=== PATIENT | female | born 1990 | race Caucasian/White ===

== ENCOUNTER 2018-06-04 10:31 | Emergency (ER) | payer SELFPAY ==
[2018-06-04 10:32] VITALS: BP 128/72; PULSE 63; RESP 18; TEMP 36.8; O2SAT 100; BMI 20.9
--- NOTE | 2018-06-04 11:15 | US_ITS ---
STUDY: FIRST TRIMESTER OBSTETRICAL ULTRASOUND REASON FOR EXAM: Female, 27 years old. BLEEDING WITH X 1 DAY HCG- LESS THAN 1 LMP: 05/02/2018 TECHNIQUE: Transvaginal PRIOR ULTRASOUND: None. FINDINGS: There is no demonstrated intrauterine gestational sac. The uterus measures 9.6x5.5x3.8 cm. There is no demonstrated uterine fibroid. The cervix is closed. The right ovary measures 3 x 2.5 x 1.7 cm. There is no right ovarian cyst. There is no visualized right adnexal mass or complex lesion. The left ovary measures 2.5 x 1.9 x 1.4 cm. There is no left ovarian cyst. There is no visualized left adnexal mass or complex lesion. There is no fluid in the cul de sac. US/Transvaginal w/Preg US IMPRESSION: There is no demonstrated intrauterine gestational sac. Ectatic cannot excluded follow-up is recommended. Electronically Signed: Katia Gilliland MD at 13:20 EDT Tel , Service support ,
--- NOTE | 2018-06-04 11:48 | ED.DCSUM_ITS ---
- ER Visit Summary Date of Service: 06/04/18 Chief Complaint: Vaginal bleeding and History of Present Illness: The patient is a 27 F is a AB 2 (P2 = 1 live 1 stillbirth) who presents at approximately 4 weeks gestation with vaginal bleeding. She states it is heavier than and regular. For her and she denies any clots or tissue. She notes a sharp suprapubic pain symptoms began this morning. She states that she is A positive. 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 Physical Examination: Afebrile vital signs are stable Gen: Well-nourished well-developed Head: Normocephalic atraumatic Eyes: Perrl EOMI ENT: TMs clear no rhinorrhea moist mucous membranes Neck: Supple no lymphadenopathy no JVD nontender CVS: Regular rate rhythm no murmurs normal S1-S2 Respiratory: No distress clear to auscultation bilaterally chest nontender Abdomen: Soft nontender nondistended normal bowel sounds no masses Back: Nontender Extremity: Nontender no edema Skin: Normal color no rash Neuro: alert orientated ?3 CN II-XII intact normal strength sensation reflexes gait cerebellar Psych: Normal affect normal mood Test Results: Quant is less than 1. Pelvic ultrasound negative Emergency Department Course and Treatment: This most likely is a spontaneous miscarriage. 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 Impression: 1. Spontaneous miscarriage This note was generated with [employer] dictation software. It may contain incorrect words, spelling, and punctuation that were not noted in review of the chart prior to signing ED Disposition - Plan for ED Patient: Disposition: Home or Assisted Living Chief Complaint: Vag Bld, Preg Instructions: Discharge Instructions for Miscarriage Referrals: Maggy Lee MD [STAFF PHYSICIAN] -
[2018-06-04 12:08] LABS: hCG Titer Quant., Serum < 1 mIU/mL (<9 non-preg)
[2018-06-04 14:08] VITALS: BP 108/74; PULSE 68; RESP 15; O2SAT 98
== END 2018-06-04 14:09 | disposition home or self-care (01) ==
PROVIDERS: Emergency Provider Emergency Medicine; Family Provider Family Medicine; PCP Family Medicine
DX: O03.9 Complete or unspecified spontaneous abortion without complication (principal)
CPT/HCPCS: 76817; 84702; 99283; A4216

== ENCOUNTER → 2018-08-09 12:00 | Outpatient (CLI) | payer OTHER, SELFPAY ==
--- NOTE | 2018-08-09 12:09 | RAD_ITS ---
STUDY: X-RAY - LEFT HAND, ATTENTION FOURTH FINGER REASON FOR EXAM: Female, 27 years old. Left fourth digit smashed by couch while moving. Distal interphalangeal joint pain and bruising and swelling. TECHNIQUE: 3 view(s) of the finger were obtained. COMPARISON: None. FINDINGS: Normal metacarpal head. Normal metacarpophalangeal joint. Normal proximal phalanx. Normal middle phalanx. Small posterior spur base of the distal phalanx. There is a vague lucent line. Otherwise normal distal phalanx. Normal proximal interphalangeal joint. Normal distal interphalangeal joint. RAD/Finger(s) Min 2 Views IMPRESSION: Posterior spur of distal fourth phalanx. Nondisplaced avulsion possible. No dislocation. Electronically Signed: Leeanna Ashton MD at 5:26 EDT , Service support ,
== END ==
PROVIDERS: Family Provider Family Medicine; PCP Family Medicine; Referring Provider Family Medicine; Visit Provider Family Medicine
DX: S69.92XA Unspecified injury of left wrist, hand and finger(s), initial encounter (principal)
CPT/HCPCS: 73140

== ENCOUNTER 2020-07-17 13:15 | Outpatient (CLI) | payer MEDICAID, SELFPAY ==
[2020-05-07 07:58] VITALS: BMI 20.9
[2020-07-17 13:34] VITALS: BP 109/68; PULSE 100
[2020-07-17 13:35] VITALS: BP 109/68; PULSE 80; TEMP 36.5; O2SAT 98
[2020-07-17 13:54] VITALS: BMI 27.8
[2020-07-17] MEDS: Lactated Ringers 500 ML IV.SOLN. 1000 ML IV (14:36)
[2020-07-17 15:09] VITALS: TEMP 36.6
[2020-07-17 15:13] VITALS: BP 115/56; PULSE 61
--- NOTE | 2020-07-17 22:02 | OB.TRI.NOTE ---
- Problem List (1) 36 weeks gestation of Status: Acute (2) Vaginal pain Status: Acute History of Present Illness Was patient seen by the physician?: No Reason For Visit: R/O LABOR Date of Service: 07/17/20 Final KESHAWN: 08/12/20 Gestational age: 36 Weeks and 2 Days History of Present Illness: Patient is a at 36.2 weeks gestation that presented to triage with vaginal pain. Denies any contractions, cramping, loss of fluid or vaginal bleeding. Positive movement. Feeling pain like a pulling sensation in lower groin/vaginal area. Allergies No Known Allergies Allergy (Verified 05/07/20 07:56) Review of Systems Constitutional: Denies: Anorexia, Chills, Fever Cardiovascular: Denies: Chest Pain Respiratory: Denies: Cough, Shortness of Breath Gastrointestinal: Denies: Abdominal Pain Genitourinary: Denies: Dysuria, Frequency, Hematuria Physical Exam Vitals: Vital Signs Temp Pulse BP Pulse Ox 97.8 F 61 115/56 L 98 07/17/20 15:09 07/17/20 15:13 07/17/20 15:13 07/17/20 13:35 General: Alert, Oriented x3 Cardiovascular: Regular rate Lungs: Normal air movement Abdomen: Soft, Non Tender, Gravid Neurological: Cranial nerves II-XII grossly intact NST - FHR Rate Baby A Baseline: 130 Variability:: Moderate Accelerations:: 15 x 15 Decelerations:: None NST Reactive:: Yes FHR Category:: Category I Uterine Activity:: Irritability Impression/Plan at 36.2 weeks gestation with vaginal and groin pain. Continuous monitoring CE unchanged Category 1 tracing, reactive NST Suspect round ligament pain- Educated on stretches and importance of slowly changing positions Discharge home with follow up in office for scheduled OB Dr. Olguin notified and agrees with plan of care- collaborating physician
== END 2020-07-17 16:30 | disposition home or self-care (01) ==
LOC: WPOUT 13:29 → WP 13:29
PROVIDERS: PCP Family Medicine; Referring Provider Advanced Practice Midwife; Visit Provider Advanced Practice Midwife
DX: O26.893 Other specified pregnancy related conditions, third trimester (principal); R10.2 Pelvic and perineal pain; R10.30 Lower abdominal pain, unspecified; Z3A.36 36 weeks gestation of pregnancy
CPT/HCPCS: 59025; 59050; 99218; J7120; G0378

== ENCOUNTER 2020-07-21 14:50 | Outpatient (CLI) | payer MEDICAID, SELFPAY ==
[2020-07-21 15:19] VITALS: BMI 28.1
--- NOTE | 2020-07-21 17:08 | US_ITS ---
STUDY: OBSTETRICAL ULTRASOUND - BIOPHYSICAL PROFILE REASON FOR EXAM: Female, 29 years old. well-being LMP: 11/06/19 PRIOR ULTRASOUND: None. TECHNIQUE: Transabdominal ultrasound evaluation was performed. FINDINGS: There is a single intrauterine fetus. The fetus is in a cephalic presentation. There is demonstrated cardiac activity with a heart rate of 161 bpm. There is a normal amniotic fluid volume. BIOPHYSICAL PROFILE: Breathing Movements (FBM): 2 Gross Body Movements (GBM): 2 Tone (FT): 2 Amniotic Fluid Volume (AFV): 2 TOTAL SCORE: 8 / 8 US/Biophysical Profile IMPRESSION: Normal biophysical profile of 06/20. Electronically Signed: Mati Jackson, at 18:48 EDT Tel , Service support ,
--- NOTE | 2020-07-21 17:14 | US_ITS ---
STUDY: SECOND AND THIRD TRIMESTER OBSTETRICAL ULTRASOUND REASON FOR EXAM: Female, 29 years old LGA- GROWTH AND MAXIMILIAN LMP: 11/06/2019 TECHNIQUE: Transabdominal TECHNICAL QUALITY: Adequate. PRIOR ULTRASOUND: None. FINDINGS: There is a single intrauterine fetus. The fetus is in a cephalic presentation. There is demonstrated cardiac activity with a heart rate of 167 bpm. There is a normal amniotic fluid volume. The largest amniotic fluid pocket measures 5.4 cm. The amniotic fluid index (MAXIMILIAN) is 9 cm. The placenta is anterior in location and is not low lying. There are Grade 1 placental changes. The cervix measures 3.9 cm in length. The bilateral adnexal regions are normal. BIOMETRY: BPD: 8.4 cm: 33 weeks, 5 days HC: 31.8 cm: 35 weeks, 6 days AC: 36.1 cm: 40 weeks, 1 days FL: 7.5 cm: 38 weeks, 2 days CI: 75% FL/BPD: 89 FL/AC: 21% HC/AC: 0.88 age by current US: 37 weeks, 0 days. KESHAWN by current US: 08/11/2020. Estimated weight: 3450 grams, +/- 504 grams, 88 %. . Age by LMP: 36 weeks, 6 days. KESHAWN by LMP: 08/12/2020. US/OB Limited With Biometrics IMPRESSION: 37 week intrauterine Electronically Signed: Ricky Cochran MD at 20:17 EDT , Service support ,
--- NOTE | 2020-07-22 01:50 | OB.TRI.NOTE ---
History of Present Illness Date of Service: 07/21/20 Was patient seen by the physician?: No Reason For Visit: R/O L;ABOR Date of Service: 07/21/20 Final KESHAWN: 08/12/20 Final KESHAWN Source: US <20 weeks Gestational age: 36 6/7 weeks History of Present Illness: 29-year-old 4 para 1-1-1-1 at 36-6/7 weeks gestation presents for some spotting and contractions. She denies any gross vaginal bleeding or leaking of fluid. She is had good movement. She is just been more uncomfortable with the contractions and they seemed of gotten a little worse when she arrived to labor and delivery. Allergies No Known Allergies Allergy (Verified 05/07/20 07:56) Physical Exam General: Alert, Cooperative, No apparent distress Abdomen: Soft, Non Tender, Non-Distended, Gravid, Appropriate for Gestational Age, - - contractions are mild to moderate NST - FHR Rate Baby A Baseline: 130 Variability:: Moderate Accelerations:: 15 x 15 Decelerations:: Variable NST Reactive:: Yes FHR Category:: Category I - after variable Uterine Activity:: irreg ctxs Impression/Plan 29 YOF @ 36 6/7 weeks w/ threatened PTL, occas mild variable. BPP reassuring. Fetus is AGA w/ normal AFV on growth scan d/c home, labor precautions, kick counts, f/u as scheduled in the office or as needed
== END 2020-07-21 17:55 | disposition home or self-care (01) ==
LOC: WPOUT 15:00 → WP 15:03 → OBT 16:10
PROVIDERS: PCP Family Medicine; Referring Provider Obstetrics & Gynecology; Visit Provider Obstetrics & Gynecology
DX: O47.03 False labor before 37 completed weeks of gestation, third trimester (principal); Z3A.37 37 weeks gestation of pregnancy
CPT/HCPCS: 59025; 59050; 76816; 76818; 99218; G0378

== ENCOUNTER 2020-07-23 10:55 | Outpatient (CLI) | payer MEDICAID, SELFPAY ==
[2020-07-23 11:11] VITALS: BMI 26.6
[2020-07-23 12:06] LABS: ROM Internal Control Test YES-OK TO RESULT pt. (Internal QC); ROM Patient Test Negative (Negative)
[2020-07-23 13:01] VITALS: BP 109/59; PULSE 68
[2020-07-23 13:02] VITALS: BP 109/59; PULSE 68; RESP 16; TEMP 36.7
[2020-07-23 14:49] VITALS: PULSE 89; O2SAT 98
[2020-07-23 14:50] VITALS: BP 117/56; PULSE 82
--- NOTE | 2020-07-23 20:49 | OB.TRI.NOTE ---
- Problem List (1) Amniotic fluid leaking Status: Acute (2) 37 weeks gestation of Status: Acute History of Present Illness Date of Service: 07/23/20 Was patient seen by the physician?: Yes Reason For Visit: R/O LABOR Date of Service: 07/23/20 Final KESHAWN: 08/12/20 Final KESHAWN Source: US <20 weeks Gestational age: 37 Weeks and 1 Days History of Present Illness: Patient presented to triage for leaking fluid. Patient denies any vaginal bleeding or gush of fluid. Just feels like underwear are damp. Positive movement. Does feel irregular contractions. Allergies No Known Allergies Allergy (Verified 05/07/20 07:56) Laboratory Studies: Laboratory Tests 07/23/20 Range/Units 11:20 Vag Amniotic Fld Detect Negative (Negative) Review of Systems Constitutional: Denies: Anorexia, Chills, Fever Eyes: Denies: Blurred vision Cardiovascular: Denies: Chest Pain Respiratory: Denies: Cough, Shortness of Breath Gastrointestinal: Denies: Abdominal Pain Genitourinary: Denies: Dysuria Neurological: Denies: Blurred vision, Headaches Physical Exam Vitals: Vital Signs Temp Pulse Resp BP Pulse Ox 98.0 F 82 16 117/56 L 98 07/23/20 13:02 07/23/20 14:50 07/23/20 13:02 07/23/20 14:50 07/23/20 14:49 General: Alert, Oriented x3 Cardiovascular: Regular rate Lungs: Normal air movement Abdomen: Soft, Non Tender, Gravid Neurological: Cranial nerves II-XII grossly intact Cervix Dilation (cm): 0.5 - RN exam Station: -3 NST - FHR Rate Baby A Baseline: 130 Variability:: Moderate Accelerations:: 15 x 15 Decelerations:: None NST Reactive:: Yes FHR Category:: Category I Uterine Activity:: Irregular contractions Impression/Plan A/P at 37.5 weeks gestation to rule out labor and rupture of membranes ROM collected - negative Category 1 tracing , NST reactive CE- unchanged Discharge home- Patient to keep scheduled office appointment
== END 2020-07-23 13:05 | disposition home or self-care (01) ==
LOC: WPOUT 11:00 → OBT 11:01
PROVIDERS: Obstetrics & Gynecology; PCP Family Medicine; Referring Provider Advanced Practice Midwife; Visit Provider Advanced Practice Midwife
DX: O47.1 False labor at or after 37 completed weeks of gestation (principal); Z3A.37 37 weeks gestation of pregnancy
CPT/HCPCS: 59025; 59050; 84112; 99218; G0378

== ENCOUNTER → 2020-07-31 09:00 | Outpatient (CLI) | payer MEDICAID, SELFPAY ==
[2020-07-23 11:11] VITALS: BMI 26.6
== END ==
PROVIDERS: PCP Family Medicine; Referring Provider Obstetrics & Gynecology; Visit Provider Obstetrics & Gynecology
DX: Z11.59 Encounter for screening for other viral diseases (principal)
CPT/HCPCS: 87635; C9803; U0003

== ENCOUNTER 2020-08-01 16:40 | Outpatient (CLI) | payer MEDICAID, SELFPAY ==
[2020-08-01 17:07] VITALS: TEMP 36.4
[2020-08-01 17:21] VITALS: BMI 28.3
[2020-08-01 17:41] VITALS: BP 113/69; PULSE 98
[2020-08-01 17:47] LABS: ROM Internal Control Test YES-OK TO RESULT pt. (Internal QC); ROM Patient Test Negative (Negative)
[2020-08-01] MEDS: cycloBENZAPRine HCl 5 MG TABLET PO (19:21)
[2020-08-01] MEDS: proMETHazine 25 MG Tablet PO (19:21)
[2020-08-01] MEDS: DiphenhydrAMINE 25 MG Capsule PO (19:21)
--- NOTE | 2020-08-17 14:05 | OB.TRI.PN ---
Progress Notes Date of Service: 08/01/20 Progress Note: Presented to triage with complaint of vaginal discharge and possible leakage of fluid. Irregular contractions O: Rom plus negative FHR 145 moderate variability, accels. Reactive NST. Irregular contractions A: Vaginal discharge P: 1) No ROM. Ok to D/C home with labor instructions. Laboratory Studies: Laboratory Tests 08/01/20 Range/Units 16:55 Vag Amniotic Fld Detect Negative (Negative)
== END 2020-08-01 19:30 | disposition home or self-care (01) ==
LOC: WPOUT 16:48 → OBT 16:49
PROVIDERS: PCP Family Medicine; Visit Provider Advanced Practice Midwife
DX: O62.9 Abnormality of forces of labor, unspecified (principal); Z3A.00 Weeks of gestation of pregnancy not specified
CPT/HCPCS: 59025; 59050; 84112; 99218; G0378

== ENCOUNTER 2020-08-03 08:15 | Inpatient (IN) | payer MEDICAID, SELFPAY ==
[2020-08-03] VITALS (37 sets, daily range): BP systolic 89–125; BP diastolic 46–82; PULSE 63–105; RESP 16–18; TEMP 36.4–36.9; O2SAT 97–99; BMI 28.5
[2020-08-03] MEDS: hydrOXYzine PAM 25 MG Capsule 50 MG PO (04:17)
[2020-08-03] MEDS: Morphine 4 MG/ML Syringe IM (04:33)
[2020-08-03] MEDS: Lactated Ringers 1,000 ML 200 ML IV (08:40)
[2020-08-03] MEDS: Lactated Ringers 500 ML 999 ML IV ×2 (08:50→09:59)
[2020-08-03 08:55] LABS: Absolute Lymphocyte Count 2.61 X10^3/uL (0.83-4.51); Absolute Neutrophil Count 10.4 X10^3/uL (2.0-7.7); Basophil# 0.04 X10^3/uL; Basophil% 0.3 % (0-1); Eosinophil# 0.09 X10^3/uL; Eosinophils% 0.6 % (0-5); Hematocrit 36.4 % (37-47); Hemoglobin 12.3 g/dL (12.0-15.0); Lymphocyte # 2.61 X10^3/ul (4.0); Lymphocyte % 17.9 % (19-41); Mean Corp Hgb Conc 33.8 g/dL (32-36); Mean Corpuscular Hgb 30.8 pg (27.0-32.0); Mean Corpuscular Volume 91.2 fL (81-99); Monocyte# 1.31 X10^3/uL; NRBC Flagged by Analyzer 0 % (0-5); Neutrophil # 10.36 X10^3/uL (2.7-7.7); Neutrophil % 71.2 % (47-70); Platelet Count 183 K/mm3 (150-450); RBC Distribution Width CV 13.5 % (11.6-14.6); RBC Distribution Width SD 45.1 fl (35.1-43.9); Red Blood Count 3.99 M/mm3 (4.2-5.4); White Blood Count 14.6 K/mm3 (4.4-11.0)
--- NOTE | 2020-08-03 09:43 | HP.PCM_ITS ---
History Date of Admission: 06/17/17 Final KESHAWN: 08/12/20 Final KESHAWN Source: US <20 weeks Gestational age: 38 Weeks and 5 Days History of this : This is a 29 year-old, @ 38+ weeks, in labor. h/o previous vaginal delivery and c/s for with multiple anomalies. Allergies No Known Allergies Allergy (Verified 08/03/20 01:29) Home Medications: Home Medications Vits [Prenatabs FA ] 1 tab PO DAILY 11/13/14 Ferrous Sulfate [Iron] 325 mg PO DAILY 07/17/20 Smoking Status: Former smoker Alcohol: None Number of Fetus(es): 1 NST - FHR Rate Baby A Baseline: 135 Variability:: Moderate Accelerations:: 15 x 15 Decelerations:: None NST Reactive:: Yes FHR Category:: Category I Uterine Activity:: 2-4 min History Past Pregnancies: Past Pregnancies Delivery Date Name GA/ Weeks Outcome Route Wt Sex Labor Length Anesthesia Delivery Location Provider FOB Review of Systems Constitutional: Denies: Anorexia Eyes: Denies: Blurred vision HEENT: Denies: Difficulty Hearing, Head Aches Physical Exam Vitals: Vital Signs Temp Pulse BP Pulse Ox 97.6 F L 93 121/69 H 99 08/03/20 06:23 08/03/20 09:41 08/03/20 07:26 08/03/20 09:41 General: Alert, Oriented x3 Abdomen: Soft, Non Tender, Gravid Neurological: Cranial nerves II-XII grossly intact 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 1) admit to L&D 2) monitor fhr/toco 3) AROM- clear 4) will augment with pitocin if needed 5) epidural for pain 6) anticipate 7) Dr. Elke Bland will be backup while patient in labor
[2020-08-03] MEDS: fentaNYL-bupivacaine (epidural) 100 ML BAG EPIDURAL (09:50)
[2020-08-03] MEDS: Oxytocin 30 units/NS 500 ml 30 UNITS/500 ML IV.SOLN 334 UNITS IV (12:35)
--- NOTE | 2020-08-03 12:39 | PCM.OPRPT ---
Vaginal Delivery Maternal Presentation: Active Labor Amniotic Membrane Rupture Type: Artificial Amniotic Fluid Description: Clear Final KESHAWN: 08/12/20 Gestational age: 38 Weeks and 5 Days Date of Procedure: 08/03/20 Pre-Operative Diagnosis: term gestation, in labor Post-Operative Diagnosis: same, live female infant Surgery/ Procedure Performed: Spontaneous Vaginal Delivery Type of Anesthesia: Epidural Description of Procedure: of live female born without complications. Good maternal pushing efforts delivered head, loose nuchal x 2 reduced. Gentle downward traction placed and with good maternal pushing efforts shoulders delivered followed by body. placed on mother for immediate skin to skin. Vigourous at delivery. delayed cord clamping. Placenta delivered without complication and intact. Vagina/perineum intact. Presentation: Vertex Placental Delivery Description: Spontaneous Placenta Disposition: [facility] Cord Vessel Description: 3 Vessels Nuchal Cord Compression: With compression Cord Entanglement: Around neck x 2, loose Drain: Sebastian to straight drain Estimated Blood Loss: 150 Infant A gender: Female (1 minute): 8 (5 minute): 9 Episiotomy Description: None Laceration: None Medications given after delivery: IV Pitocin Complications: None - successful
[2020-08-03] MEDS: Ibuprofen 600 MG Tablet PO ×2 (13:19→20:27)
[2020-08-03] MEDS: Acetaminophen 500 MG Tablet 1000 MG PO (18:05)
[2020-08-04] VITALS (7 sets, daily range): BP systolic 86–114; BP diastolic 44–62; PULSE 57–71; RESP 16; TEMP 36.8–37.1; O2SAT 98
[2020-08-04] MEDS: Ibuprofen 600 MG Tablet PO (03:48)
--- NOTE | 2020-08-04 08:44 | PCM.PN.OB ---
Subjective: No complaints - Physical Exam Vitals/I&O's: Vital Signs Temp Pulse Resp BP Pulse Ox 98.2 F 71 16 114/56 L 97 08/04/20 08:11 08/04/20 08:11 08/04/20 08:11 08/04/20 08:11 08/03/20 20:03 Oxygen Delivery Method Room Air Weight: 166 lb 2 oz Body Mass Index (BMI) 28.5 Intake and Output for Last 24 Hours 08/02/20 08/03/20 08/04/20 23:59 23:59 23:59 Intake Total 2276.67 / 2276.67 Output Total 950 / 950 Balance 1326.67 / 1326.67 General: Alert, Oriented x3 Abdomen: Soft, Non Tender, Non-Distended - ff mid & below umb Extremities: No Calf Tenderness Laboratory Results 08/03/20 08:40: WBC 14.6 H, RBC 3.99 L, Hgb 12.3, Hct 36.4 L, MCV 91.2, MCH 30.8, MCHC 33.8, RDW Std Deviation 45.1 H, RDW Coeff of Gage 13.5, Plt Count 183, MPV 12.0, Immature Gran % (Auto) 1.000 H, Neut % (Auto) 71.2 H, Lymph % (Auto) 17.9 L, Young % (Auto) 9.0, Eos % (Auto) 0.6, Baso % (Auto) 0.3, Absolute Neuts (auto) 10.4 H, Absolute Lymphs (auto) 2.61, Nucleated RBC % 0 08/03/20 08:40: Blood Type A POSITIVE, Antibody Screen NEGATIVE Current Medications Acetaminophen (Tylenol) 1,000 mg PO Q8H PRN PRN PRN Reason: Pain Score 1-3/10 Last Admin: 08/03/20 18:05 Dose: 1,000 mg Documented by: Bisacodyl (Dulcolax) 10 mg RECTAL UD PRN PRN Reason: If no BM Dibucaine (Dibucaine) 1 applic TOPICAL TID PRN PRN; Protocol PRN Reason: Discomfort Ferrous Sulfate (Ferrous Sulfate) 325 mg PO 1200 [place] Hydrocortisone (Hytone) 1 applic TOPICAL TID PRN PRN; Protocol PRN Reason: Discomfort Ibuprofen (Motrin) 600 mg PO Q6H PRN PRN PRN Reason: Pain Score 1-3/10 Last Admin: 08/04/20 03:48 Dose: 600 mg Documented by: Methylergonovine Maleate (Methergine) 0.2 mg IM X1 PRN PRN Reason: Excess bleeding/uterine atony Ondansetron HCl (Zofran) 4 mg IV Q4H PRN PRN PRN Reason: Nausea Oxycodone HCl (Oxyir) 5 - 10 mg PO Q4H PRN PRN PRN Reason: Pain Score 4-10/10 Senna/Docusate Sodium (Senokot-S, Anu-Colace) 1 - 2 tablet PO DAILY PRN PRN PRN Reason: Constipation Simethicone (Mylicon) 80 mg PO PCHS PRN PRN Reason: Indigestion/Stomach pain Sodium Chloride () 5 - 15 ml IV UD PRN PRN Reason: SALINE FLUSH Medical Necessity - Tobacco Use Smoking Status: Former smoker Assessment/Plan All Active Problems (Last Reviewed 05/07/20 @ 07:58 by Jocy Pierce) 36 weeks gestation of (Acute) Vaginal pain (Acute) Amniotic fluid leaking (Acute) 37 weeks gestation of (Acute) Urinary tract infection with hematuria (Acute) PPD#1 D/c home per patient request
--- NOTE | 2020-08-04 08:45 | DCINST_ITS ---
Discharge Diet: No Restrictions Discharge Activity: May Not Drive, May Shower May resume sexual activity in: 6 weeks Weight Bearing Status: Weight bearing as tolerated Additional Instructions: If you experience any of the following, contact your healthcare provider. * Bleeding that soaks a pad every hour for 2 hours * Fever 100.4 or higher * Unrelieved incision or abdominal pain * Swelling, redness, discharge or bleeding from your incision or episiotomy site * Your incision begins to separate * Problems urinating (including inability to urinate or burning while urinating). * Visual changes * Severe headache * Flu-like symptoms * Pain or redness in one of both of your breasts * Pain, warmth, tenderness or swelling in your legs, especially the calf area * Frequent nausea and vomiting * Symptoms of depression or anxiety If you experience any of the following, call 911 or go to the nearest Emergency Room. * Chest pain * Problems breathing * Seizure activity * Partial or complete paralysis of a body part, slurred speech, weakness or drooping of the face, or a sudden inability to walk or hold your balance Allergies/Adverse Reactions: Allergies No Known Allergies Allergy (Verified 08/03/20 01:29) Medications to take at Discharge Vits [Prenatabs FA ] 1 tab PO DAILY 11/13/14 Ferrous Sulfate [Iron] 325 mg PO DAILY 07/17/20 Acetaminophen [Tylenol] 1,000 mg PO Q8H PRN PRN tablet 08/04/20 Ibuprofen [Motrin] 600 mg PO Q6H PRN PRN tablet 08/04/20 Primary Care Physician: Syed Herrera MD [Primary Care Provider] - Test Results: Test results from this visit will be discussed in further detail at your follow- up appointment, if applicable.
--- NOTE | 2020-08-04 08:45 | PCM.DCVAG ---
Discharge Diet: No Restrictions Discharge Activity: May Not Drive, May Shower May resume sexual activity in: 6 weeks Weight Bearing Status: Weight bearing as tolerated Additional Instructions: If you experience any of the following, contact your healthcare provider. Bleeding that soaks a pad every hour for 2 hours Fever 100.4 or higher Unrelieved incision or abdominal pain Swelling, redness, discharge or bleeding from your incision or episiotomy site Your incision begins to separate Problems urinating (including inability to urinate or burning while urinating). Visual changes Severe headache Flu-like symptoms Pain or redness in one of both of your breasts Pain, warmth, tenderness or swelling in your legs, especially the calf area Frequent nausea and vomiting Symptoms of depression or anxiety If you experience any of the following, call 911 or go to the nearest Emergency Room. Chest pain Problems breathing Seizure activity Partial or complete paralysis of a body part, slurred speech, weakness or drooping of the face, or a sudden inability to walk or hold your balance Allergies/Adverse Reactions: Allergies No Known Allergies Allergy (Verified 08/03/20 01:29) Medications to take at Discharge Vits [Prenatabs FA ] 1 tab PO DAILY 11/13/14 Ferrous Sulfate [Iron] 325 mg PO DAILY 07/17/20 Acetaminophen [Tylenol] 1,000 mg PO Q8H PRN PRN tablet 08/04/20 Ibuprofen [Motrin] 600 mg PO Q6H PRN PRN tablet 08/04/20 Primary Care Physician: Syed Herrera MD [Primary Care Provider] - Test Results: Test results from this visit will be discussed in further detail at your follow-up appointment, if applicable.
[2020-08-04] MEDS: Ferrous Sulfate 325 MG Tablet PO (14:36)
[2020-08-04] MEDS: Acetaminophen 500 MG Tablet 1000 MG PO (14:55)
--- NOTE | 2020-08-04 15:21 | CASEMGMT ---
Social Work Brief Assessment Labor and Delivery Unit Patient Address: [address], [place] [address] Phone number: [phone] Date of Referral/Notification: 08/04/2020 Time of Referral: [id number] Referred By: Dr. Erickson Date of Intervention: 08/04/2020 Time of Intervention: 152 Reason for Referral: Maternal history of loss Informant: Medical record and mother of baby (GENO) Miesha Prakash History: GENO is a 29-year-old female who delivered a baby girl Millicent Nair on 08/03/2020. GENO is 4 para 2, now 3 after delivering Millicent. Father of baby (FOB) is reported to be Jonathan Nair who is age 23. This is the first baby for Jonathan. GENO started care during this at 7 weeks gestation. GENO has 1 living child, Ankit Prakash who is 8 years old. It is reported that GENO has 2 previous losses including 1 full-term infant girl who after 2 hours of life due to congenital anomalies. MOB with another which was electively terminated, also due to the same congenital anomalies. Both were infant girls and were named Brie and Funmi. MOB reports she has been with the father of baby for the last 3 years. Denies any domestic violence or safety concerns in relationship. FOB works in construction and MOB stays at home. MOB reports her mother is a strong support person if MOB should need any type of emotional support. MOB denies any history of mental health issues or depression. Does admit to grief after the loss of 2 infants, and reports did go to counseling for short time to help ensure that GENO was communicating appropriately with her young son. Assessment: Met with MOB in room, also in room was nurse who was finishing up discharge for MOB, and also the FOB was sitting on the couch on his phone. MOB was initially placing baby in the car seat, and when finished set baby down to speak with this automobile and property underwriter. Introduced to self and role, and reason for visit. MOB reports to have needed baby supplies and reports looking forward to returning home. MOB reports to feel a connection with this baby and to be happy about having her daughter. MOB denies any history of prior depression or any concerns with emotional health issues currently. MOB did accept a packet on mood and anxiety disorders for home-going. Touched on risk factors present and explored whether GENO has any support in case symptoms arise. GENO reports to be feeling good emotionally, and identifies her mother as a strong emotional support person. MOB denies any type of concerns with home-going, and accepted information that social work offered. No voiced concerns by nursing staff regarding parent-child interactions or bonding. Interaction with family was brief this date. Note that MONICA appeared disinterested and irritable during social work visit. MONICA clearly had an irritated facial expression, to which this automobile and property underwriter inquired if MONICA was doing okay. MONICA admitted to being irritated, and just ready to go home. MONICA polite overall, just limited eye contact and engagement in the conversation, remaining on his phone for most of the time. MONICA did go out to pull the car around at the encouragement MOB, and made a comment to the point of it all gets better from here, right? MOB polite, good eye contact, bright affect. MOB reports that MONICA is just very tired with little sleep, and that MONICA is a home body. MOB denies any other concerns or issues going on at this point. MOB made comment that MONICA will have to adjust to the fact that discharge is a little later when FOB wanted it to be. MONICA does report will be off of work tomorrow. GENO did make comment that she thinks her sister may be having some depression, and plans to share information this automobile and property underwriter provided with MOB sister. GENO denies any needs for home-going. Plan: MOB and infant to discharge home today. Information on mood and anxiety disorders provided, as well as online and local supports in case the need arises. No further needs requested or indicated. -ZHAO Recio, FLORENCIO *Information documented in this assessment generated with [email or web address] System*
== END 2020-08-04 15:25 | disposition home or self-care (01) | DRG 560 ==
LOC: OBT 08:25 → WP 08:25
PROVIDERS: Admitting Provider Obstetrics & Gynecology; PCP Family Medicine; Referring Provider Advanced Practice Midwife; Visit Provider Obstetrics & Gynecology
DX: O34.219 Maternal care for unspecified type scar from previous cesarean delivery (principal); N85.8 Other specified noninflammatory disorders of uterus; Z3A.38 38 weeks gestation of pregnancy; Z37.0 Single live birth; Z87.891 Personal history of nicotine dependence; O69.1XX0 Labor and delivery complicated by cord around neck, with compression, not applicable or unspecified; O62.9 Abnormality of forces of labor, unspecified; Z3A.00 Weeks of gestation of pregnancy not specified; Z11.59 Encounter for screening for other viral diseases
CPT/HCPCS: 59025; 59050; 84112; 85025; 86850; 86900; 86901; 87635; 99218; C9803; J7120; 90686; G0378; U0003

== ENCOUNTER → 2021-08-02 08:18 | Outpatient (CLI) | payer MEDICAID, SELFPAY | PROVIDERS: Visit Provider Physician Assistant Surgical | DX: R05 Cough (principal) | CPT/HCPCS: 87635; U0005; U0003 ==

== ENCOUNTER 2022-06-25 00:30 | Outpatient (CLI) | payer MEDICAID, SELFPAY ==
[2022-06-25 00:53] VITALS: TEMP 36.6
[2022-06-25 00:59] VITALS: BMI 28.2
[2022-06-25 01:01] VITALS: BP 125/60; PULSE 94
[2022-06-25 01:02] VITALS: PULSE 86; O2SAT 99
--- NOTE | 2022-06-25 11:35 | OB.TRI.NOTE ---
HPI - General General Date of Admission: 06/25/22 Date of Service: 06/25/22 Chief Complaint: contractions HPI Narrative GENO TURNER, is a 31 F who presents with irregular ctx's q 2-8 min. No lof or vb. Good FM. PFSH PFSH Home Medications vits,calcium no.78-iron fumarate-folic acid 29 mg-1 mg tablet 1 tab PO DAILY 11/13/14 [History Last Taken 06/25/22] ferrous sulfate 325 mg (65 mg iron) tablet 325 mg PO DAILY anemia 07/17/20 [History Last Taken 06/24/22] Allergy/AdvReac Type Severity Reaction Status Date / Time No Known Allergies Allergy Verified 08/03/20 01:29 Social History (Updated 05/07/20 @ 08:18 by Mati ONEAL, PA) Smoking Status: Former smoker alcohol intake: never History Elective abortions Hx Para 2 Spontaneous abortions Hx # Term Pregnancies Ectopic pregnancies Hx # Pregnancies Multiple births # of living children NST FHR Rate Baby A Baseline: 130 Variability:: Moderate Accelerations:: 15 x 15 Decelerations:: None NST Reactive:: Yes FHR Category:: Category I Uterine Activity:: irregular ctx's Assessment & Plan (1) 38 weeks gestation of : PLAN: Cvx 1 cm and remained 1 cm. Uterine ctx's irregular for pt at this time and she is comfortable going home. Counseled regarding likely early labor and reasons to call or return to L&D for eval. (2) History of section: (3) Uterine contractions:
== END 2022-06-25 02:30 | disposition home or self-care (01) ==
LOC: WPOUT 00:33 → WP 00:34
PROVIDERS: Visit Provider Obstetrics & Gynecology
DX: O47.1 False labor at or after 37 completed weeks of gestation (principal); Z87.891 Personal history of nicotine dependence; Z3A.38 38 weeks gestation of pregnancy
CPT/HCPCS: 59025; 59050; 99218; G0378

== ENCOUNTER 2022-06-28 19:17 | Outpatient (CLI) | payer MEDICAID, SELFPAY ==
[2022-06-28 19:27] VITALS: BMI 28.3
[2022-06-28 19:40] VITALS: BP 110/60; PULSE 87
[2022-06-28 19:41] VITALS: TEMP 36.7; O2SAT 98
[2022-06-28 20:33] VITALS: BP 114/55; PULSE 75; TEMP 36.4; O2SAT 97
[2022-06-28] MEDS: oxyCODONE 5 MG Tablet PO (20:55)
--- NOTE | 2022-07-15 19:23 | OB.TRI.NOTE ---
HPI - General General Date of Service: 07/30/22 HPI Narrative GENO TURNER, is a 31 F who presents with contractions. PFSH PFSH Home Medications vits,calcium no.78-iron fumarate-folic acid 29 mg-1 mg tablet 1 tab PO DAILY 11/13/14 [History Last Taken 07/07/22] ferrous sulfate 325 mg (65 mg iron) tablet 325 mg PO DAILY anemia 07/17/20 [History Last Taken 07/07/22] Allergy/AdvReac Type Severity Reaction Status Date / Time No Known Allergies Allergy Verified 06/28/22 19:56 Surgical History (Updated 07/08/22 @ 04:36 by Zoey Peterson) History of surgery Previous section Social History (Updated 05/07/20 @ 08:18 by Mati ONEAL, PA) Smoking Status: Former smoker alcohol intake: never History Elective abortions Hx Para 3 Spontaneous abortions Hx # Term Pregnancies Ectopic pregnancies Hx # Pregnancies Multiple births # of living children Assessment & Plan (1) 38 weeks gestation of : COMMENT: 37&3 PLAN: Reactive NST for false labor
== END 2022-06-28 21:00 | disposition home or self-care (01) ==
LOC: WPOUT 19:25 → WP 19:27
PROVIDERS: Visit Provider Obstetrics & Gynecology
DX: O47.1 False labor at or after 37 completed weeks of gestation (principal); Z3A.38 38 weeks gestation of pregnancy; Z87.891 Personal history of nicotine dependence
CPT/HCPCS: 59025; 59050; 99218; G0378

== ENCOUNTER 2022-07-08 05:35 | Inpatient (IN) | payer MEDICAID, SELFPAY ==
[2022-07-08] VITALS (42 sets, daily range): BP systolic 84–127; BP diastolic 45–69; PULSE 54–95; RESP 16–18; TEMP 36.2–36.6; O2SAT 96–100
[2022-07-08 01:12] LABS: ROM Internal Control Test YES-OK TO RESULT pt. (Internal QC); ROM Patient Test Negative (Negative)
[2022-07-08] MEDS: LACTATED RINGERS 500 ML 999 ML IV ×2 (05:45→10:17)
[2022-07-08 06:15] LABS: Absolute Lymphocyte Count 3.44 X10^3/uL (0.83-4.51); Absolute Neutrophil Count 10.4 X10^3/uL (2.0-7.7); Basophil# 0.07 X10^3/uL; Basophil% 0.4 % (0-1); Eosinophil# 0.17 X10^3/uL; Eosinophils% 1.1 % (0-5); Hematocrit 32.5 % (37-47); Hemoglobin 10.8 g/dL (12.0-15.0); Lymphocyte # 3.44 X10^3/ul (0.83-4.51); Lymphocyte % 21.5 % (19-41); Mean Corp Hgb Conc 33.2 g/dL (32-36); Mean Corpuscular Hgb 31.3 pg (27.0-32.0); Mean Corpuscular Volume 94.2 fL (81-99); Mean Platelet Vol. 12.1 fl (6.2-12.0); Monocyte# 1.64 X10^3/uL; Monocyte% 10.2 % (0-10); NRBC Flagged by Analyzer 0 % (0-5); Neutrophil # 10.35 X10^3/uL (2.7-7.7); Neutrophil % 64.7 % (47-70); POSITIVE DIFFERENTIAL YES; Platelet Count 225 K/mm3 (150-450); RBC Distribution Width CV 13.8 % (11.6-14.6); RBC Distribution Width SD 46.8 fl (35.1-43.9); Red Blood Count 3.45 M/mm3 (4.2-5.4)
[2022-07-08 06:33] LABS: Differential Comment SCANNED; Differential Indicated SCAN CRITERIA MET
[2022-07-08] MEDS: Lactated Ringers 1,000 ML 50 ML IV (06:46)
[2022-07-08] MEDS: fentaNYL-bupivacaine (epidural) 100 ML BAG EPIDURAL (08:24)
[2022-07-08] MEDS: Oxytocin 30 units/NS 500 ml 30 UNITS/500 ML IV.SOLN IV (09:34)
[2022-07-08] MEDS: Lactated Ringers 1,000 ML 200 ML IV (11:22)
--- NOTE | 2022-07-08 11:51 | PCM.HP.OB ---
[facility] - General General Date of Admission: 07/08/22 Date of Service: 07/08/22 Chief Complaint: labor HPI Narrative GENO TURNER, is a 31-year-old female 5 para 2-1-1-2 who presents at 39-6/7 weeks complaining contractions. She denied any gross vaginal bleeding or leaking of fluid. She was evaluated in triage and deemed to be in labor and admitted. Patient's obstetrical history is significant 1 previous that was performed for known anomalies. She had a vaginal delivery before that, and induced 22-week for anomalies not consistent with life. She then had another vaginal delivery in this current . Patient has a history of anemia during , she had an elevated 1 hour but a normal 3-hour glucose during the . She had a history of chlamydia in the past but not during this . She has a family history of polycystic kidney disease and 2 previous pregnancies affected by this. This has been tested and there is no evidence of this. Maternal Data Information Final KESHAWN: 07/12/22 Gestational age: 39 4/7 [facility] Home Medications vits,calcium no.78-iron fumarate-folic acid 29 mg-1 mg tablet 1 tab PO DAILY 11/13/14 [History Last Taken 07/07/22] ferrous sulfate 325 mg (65 mg iron) tablet 325 mg PO DAILY anemia 07/17/20 [History Last Taken 07/07/22] Allergy/AdvReac Type Severity Reaction Status Date / Time No Known Allergies Allergy Verified 06/28/22 19:56 Surgical History (Updated 07/08/22 @ 04:36 by Zoey Peterson) History of surgery Previous section Social History (Updated 05/07/20 @ 08:18 by KIMMY Chan) Smoking Status: Former smoker alcohol intake: never History Elective abortions Hx Para 3 Spontaneous abortions Hx # Term Pregnancies Ectopic pregnancies Hx # Pregnancies Multiple births # of living children ROS Constitutional Constitutional: Denies fatigue, fever(s) or malaise Eyes Eyes: Denies change in vision ENT HEENT: Denies dizziness or headache(s) Cardiovascular Cardiovascular: Denies chest pain, dyspnea or lightheadedness Respiratory/Chest Respiratory/Chest: Denies cough or dyspnea Gastrointestinal Gastrointestinal: Denies change in bowel habits Genitourinary Genitourinary: Denies burning urination or genital lesions Integumentary Integumentary: Denies rash Neurologic Neurologic: Denies confusion, dizziness, headache(s), numbness or weakness Vital Signs Vital Signs Vital Signs: 07/08/22 04:22 07/08/22 04:22 07/08/22 04:23 Temperature Temperature Source Pulse Rate 60 Blood Pressure 101/56 L BP Systolic 101 BP Diastolic 56 Pulse Ox 98 07/08/22 04:23 07/08/22 07:24 07/08/22 07:24 Temperature Temperature Source Pulse Rate 76 62 Blood Pressure 108/53 L BP Systolic 108 BP Diastolic 53 Pulse Ox 07/08/22 07:24 07/08/22 07:28 07/08/22 07:28 Temperature Temperature Source Temporal Pulse Rate 69 Blood Pressure BP Systolic BP Diastolic Pulse Ox 97 07/08/22 07:24 07/08/22 08:02 07/08/22 08:02 Temperature 97.2 F L Temperature Source Pulse Rate 61 Blood Pressure 105/56 L BP Systolic 105 BP Diastolic 56 Pulse Ox 07/08/22 08:02 07/08/22 08:07 07/08/22 08:07 Temperature Temperature Source Pulse Rate 72 Blood Pressure 110/67 BP Systolic 110 BP Diastolic 67 Pulse Ox 98 07/08/22 08:07 07/08/22 08:07 07/08/22 08:12 Temperature Temperature Source Pulse Rate 70 Blood Pressure 116/69 BP Systolic 116 BP Diastolic 69 Pulse Ox 98 07/08/22 08:12 07/08/22 08:12 07/08/22 08:17 Temperature Temperature Source Pulse Rate 91 Blood Pressure 113/59 L BP Systolic 113 BP Diastolic 59 Pulse Ox 97 07/08/22 08:17 07/08/22 08:17 07/08/22 08:22 Temperature Temperature Source Pulse Rate 76 76 Blood Pressure BP Systolic BP Diastolic Pulse Ox 98 07/08/22 08:22 07/08/22 08:27 07/08/22 08:27 Temperature Temperature Source Pulse Rate 59 L Blood Pressure 108/57 L BP Systolic 108 BP Diastolic 57 Pulse Ox 99 07/08/22 08:27 07/08/22 08:27 07/08/22 08:32 Temperature Temperature Source Pulse Rate 70 87 Blood Pressure BP Systolic BP Diastolic Pulse Ox 99 07/08/22 08:32 07/08/22 08:37 07/08/22 08:37 Temperature Temperature Source Pulse Rate 73 Blood Pressure BP Systolic BP Diastolic Pulse Ox 99 99 07/08/22 09:05 07/08/22 09:05 07/08/22 09:11 Temperature Temperature Source Temporal Pulse Rate 74 Blood Pressure 90/53 L BP Systolic 90 BP Diastolic 53 Pulse Ox 07/08/22 09:11 07/08/22 09:40 07/08/22 09:40 Temperature 97.8 F Temperature Source Pulse Rate 83 Blood Pressure 117/62 BP Systolic 117 BP Diastolic 62 Pulse Ox 07/08/22 09:39 07/08/22 09:45 07/08/22 09:45 Temperature Temperature Source Pulse Rate 65 Blood Pressure 112/60 BP Systolic 112 BP Diastolic 60 Pulse Ox 99 07/08/22 09:44 07/08/22 09:49 07/08/22 09:49 Temperature Temperature Source Pulse Rate 76 Blood Pressure 124/56 H BP Systolic 124 BP Diastolic 56 Pulse Ox 100 07/08/22 09:49 07/08/22 09:55 07/08/22 09:55 Temperature Temperature Source Pulse Rate 79 Blood Pressure 101/55 L BP Systolic 101 BP Diastolic 55 Pulse Ox 98 07/08/22 09:55 07/08/22 09:55 07/08/22 09:59 Temperature Temperature Source Pulse Rate 70 Blood Pressure 98/54 L BP Systolic 98 BP Diastolic 54 Pulse Ox 96 07/08/22 09:59 07/08/22 10:00 07/08/22 10:00 Temperature Temperature Source Pulse Rate 82 76 Blood Pressure BP Systolic BP Diastolic Pulse Ox 97 07/08/22 10:05 07/08/22 10:05 07/08/22 10:05 Temperature Temperature Source Pulse Rate 73 Blood Pressure 107/53 L BP Systolic 107 BP Diastolic 53 Pulse Ox 98 07/08/22 10:10 07/08/22 10:10 07/08/22 10:10 Temperature Temperature Source Pulse Rate 80 95 Blood Pressure 96/53 L BP Systolic 96 BP Diastolic 53 Pulse Ox 07/08/22 10:10 07/08/22 10:15 07/08/22 10:15 Temperature Temperature Source Pulse Rate 64 Blood Pressure 88/49 L BP Systolic 88 BP Diastolic 49 Pulse Ox 97 07/08/22 10:35 07/08/22 10:35 07/08/22 11:01 Temperature Temperature Source Pulse Rate 66 Blood Pressure 98/45 L 93/49 L BP Systolic 98 93 BP Diastolic 45 49 Pulse Ox 07/08/22 11:01 07/08/22 11:01 07/08/22 11:01 Temperature Temperature Source Pulse Rate 60 59 L Blood Pressure 86/45 L BP Systolic 86 BP Diastolic 45 Pulse Ox 07/08/22 11:47 07/08/22 11:47 Temperature Temperature Source Pulse Rate 60 Blood Pressure 88/49 L BP Systolic 88 BP Diastolic 49 Pulse Ox Weight Weight: 2.381 kg Body Mass Index (BMI) 0.8 Physical Exam Const alert and no apparent distress General Appearance: cooperative HEENT normocephalic Resp normal respiratory effort Cardio regular rate GI soft to palpation GI Narrative: gravid, nontender, appropriate for gestational age Extremity no calf tenderness General Extremity: edema Skin no wounds Rashes: No rashes noted Psych activity/motor behavior normal Labs Labs Labs: Blood Type A POSITIVE Antibody Screen NEGATIVE Hct 32.5 % (37-47) L Hgb 10.8 g/dL (12.0-15.0) L Obstetrics US Rhogam given: No Assessment & Plan (1) 39 weeks gestation of : PLAN: 31-year-old female with history of previous section and spontaneous labor. Risk benefits alternatives to repeat section versus trial labor reviewed. Patient desires trial of labor. Estimated weight is less than 4000 g clinically and pelvis clinically adequate to expect vaginal delivery. May have epidural as needed. (2) Spontaneous onset of labor:
[2022-07-08] MEDS: Oxytocin 30 units/NS 500 ml 30 UNITS/500 ML IV.SOLN 334 UNITS IV (12:05)
--- NOTE | 2022-07-08 12:13 | EX.PCM.OBRPT ---
Assessment & Plan (1) Spontaneous onset of labor: (2) 39 weeks gestation of : (3) History of section: Maternal Data Information Final KESHAWN: 07/12/22 Gestational age: 39 4/7 Vaginal Delivery Maternal Presentation Maternal Presentation: Active Labor Operative Information Date of Procedure: 07/08/22 Pre-Operative Diagnosis: labor, previous c/s Post-Operative Diagnosis: same Surgery / Procedure Performed: Type of Anesthesia: Epidural Special Medications: none Drain: Sebastian to straight drain Estimated Blood Loss: 200 Time of Delivery: 12:02 Findings Description of Procedure: A vigorous female infant was delivered VALENTIN over an intact perineum. The remainder the was delivered with maternal pushing and gentle traction only in less than 15 seconds. The Pitocin infusion was initiated for active management of the third stage. The cord was clamped and cut after 1 minute. The was attended to by the waiting nursing staff. The placenta was delivered spontaneously and intact. The cervix and vagina were intact. Sponge and needle counts were correct. A vaginal sweep was completed by me. Presentation: VALENTIN Amniotic Membrane Rupture Type: Artificial Amniotic Fluid Description: Clear Placental Delivery Description: Spontaneous Placenta Disposition: [facility] Cord Vessel Description: 3 Vessels Cord Entanglement: None Infant A Gender: Female (Esther) (1 minute): 8 (5 minute): 9 Delayed Cord Clamping: Yes Post Vaginal Delivery Medications Given After Delivery: IV Pitocin Episiotomy Description: None Laceration: None Complication Complications: None
[2022-07-08] MEDS: Ibuprofen 600 MG Tablet PO ×2 (13:21→20:03)
[2022-07-08] MEDS: Acetaminophen 500 MG Tablet 1000 MG PO (14:53)
[2022-07-08 15:17] LABS: Pathologist Review Reviewed
--- NOTE | 2022-07-08 16:49 | NURSING ---
Patient states headache went from 6/10 to 3/10 when she lies flat.
[2022-07-08] MEDS: Ketorolac 30 MG/ML Syringe IM (17:04)
[2022-07-09] MEDS: Acetaminophen 500 MG Tablet 1000 MG PO ×2 (00:46→10:14)
[2022-07-09 04:00] VITALS: BP 91/55; PULSE 64; RESP 16; TEMP 36.3; O2SAT 98
[2022-07-09] MEDS: Ibuprofen 600 MG Tablet PO ×2 (04:05→14:29)
[2022-07-09 08:15] VITALS: BP 97/61; PULSE 62; RESP 16; TEMP 36.4; O2SAT 96
--- NOTE | 2022-07-09 09:01 | PCM.PN.OB ---
Subjective Subjective Pain well controlled. Average lochia. Objective Data Objective Data Vital Signs: Vital Signs Temp Pulse Resp BP Pulse Ox O2 Del Method 97.6 F L 62 16 97/61 96 Room Air 07/09/22 08:15 07/09/22 08:15 07/09/22 08:15 07/09/22 08:15 07/09/22 08:15 07/09/22 08:15 Oxygen Delivery Method Room Air Weight: 2.381 kg Body Mass Index (BMI) 0.8 Intake & Output: Intake and Output for Last 24 Hours 07/07/22 07/08/22 07/09/22 23:59 23:59 23:59 Intake Total 3431.10 / 3431.10 Output Total 2100 / 2100 Balance 1331.10 / 1331.10 Lab / Micro Data Result Diagrams: 07/08/22 05:45 Labs: Laboratory Results - last 24 hr 07/08/22 05:45: Diff Path Review Reviewed Micro: Microbiology 07/08/22 05:45 Nasal Secretion SARS-CoV-2 Antigen (Rapid) - Final Physical Exam Const alert and no apparent distress Narrative: Fundus firm, below umbilicus. Assessment & Plan (1) (vaginal after ): PLAN: day #1 status post successful vaginal after . is breast-feeding and doing well. Patient is doing well. Discharged home today
--- NOTE | 2022-07-09 09:02 | PCM.DC.SUM ---
Providers Date of Admission: 07/08/22 Reason For Visit: VAG DELIVERY Diagnosis Discharge Diagnosis (1) (vaginal after ): Status: Acute Code(s): O34.219 - Maternal care for unspecified type scar from previous delivery Plan: day #1 status post successful vaginal after . is breast-feeding and doing well. Patient is doing well. Discharged home today Medications at Discharge Home Medications vits,calcium no.78-iron fumarate-folic acid 29 mg-1 mg tablet 1 tab PO DAILY 11/13/14 ferrous sulfate 325 mg (65 mg iron) tablet 325 mg PO DAILY anemia 07/17/20 Hospital Course Operations None Procedures None Summary of Care Provided Hospital Course: Patient was admitted at 39 weeks on 07/08/2022. She desired a vaginal after . She was in spontaneous labor. She delivered without difficulty and by day 1 she was doing well the was breast-feeding and doing well and she desired discharge home with routine directions. Weight / BMI Weight Weight: 2.381 kg Body Mass Index (BMI) 0.8 ABG / Lab / Microbiology Data Result Diagrams: 07/08/22 05:45 Laboratory: Laboratory Results - last 24 hr 07/08/22 05:45: Diff Path Review Reviewed Microbiology: Microbiology 07/08/22 05:45 Nasal Secretion SARS-CoV-2 Antigen (Rapid) - Final D/C Instructions May resume sexual activity in: 6 weeks Please Follow Up With: Maggy Lee MD When: Follow up with our office in 1-2 and 6 weeks or as needed. [phone] Meaningful Use Info Meaningful Use Diagnoses (Choose all that apply): None applicable Discharge Plan Admission Admit Date/Time: 07/08/22 05:35 Primary Reason for Your Visit: Vaginal delivery Attending Provider: Maggy Lee Discharge Orders/Prescriptions Prescriptions: No Action vit,[id number] 1 TABLET tablet 1 tab PO DAILY ferrous sulfate 325 MG tablet 325 mg PO DAILY Disposition Disposition (needs filled in before D/C Order can be placed): Home, Self Care
[2022-07-09] MEDS: Senna/Docusate Sodium 1 Tablet PO (10:14)
[2022-07-09 14:15] VITALS: BP 102/64; PULSE 66; RESP 16; TEMP 36.6
== END 2022-07-09 14:35 | disposition home or self-care (01) | DRG 560 ==
LOC: WPOUT 05:35 → WP 05:35
PROVIDERS: Obstetrics & Gynecology; Admitting Provider Obstetrics & Gynecology; Visit Provider Obstetrics & Gynecology
DX: O34.219 Maternal care for unspecified type scar from previous cesarean delivery (principal); Z37.0 Single live birth; O99.02 Anemia complicating childbirth; Z3A.39 39 weeks gestation of pregnancy; Z87.891 Personal history of nicotine dependence
CPT/HCPCS: 59025; 59050; 84112; 85025; 86850; 86900; 86901; 87426; 99218; J7120; G0378; J3490

== ENCOUNTER 2024-05-06 09:38 | Inpatient (IN) | payer MEDICAID, SELFPAY ==
[2024-05-06] VITALS (15 sets, daily range): BP systolic 107–131; BP diastolic 46–108; PULSE 54–82; RESP 14–18; TEMP 36.1–36.7; O2SAT 97–100; BMI 32.1
--- NOTE | 2024-05-06 | FALS_PTH ---
PATIENT: GENO TURNER LOC: [facility] U#:[id number] AGE/SX: 33/F ROOM: WP006 RE05/06/[address]: Dr. Krysten Mcdaniel DO : 1990 BED: 1 DIS: 05/07/2024 SPEC #: [id number] RECD: 05/06/24 14:21 STATUS: JOCELYN FARA #: [id number] TRISTIN: 05/06/24 00:[address]: Krysten Mcdaniel DEPT: SURGICAL PATHOLOGY RECD BY: Ankita Ellis Tissues: Fallopian tube Procedures: Surgery Specimen Level II HEADER OPERATION: Tubal ligation PRE-OP DIAGNOSIS: Tubal ligation TISSUE SUBMITTED: Bilateral fallopian tubes, right with suture MICROSCOPIC DIAGNOSIS Bilateral fallopian tubes, salpingectomy: Bilateral fallopian tubes, no pathologic diagnosis. LAYO: 05/08/2024 MICROSCOPIC DESCRIPTION Slides are reviewed. GROSS DESCRIPTION Received in fixative is one container labeled with the patient's name and designated bilateral fallopian tubes- suture on right. The specimen consists of bilateral fallopian tubes including fimbrial ends. Right fallopian tube measuring 7.0 cm in length and 0.7 cm in diameter. Left fallopian tube measures 7.0cm in length and 0.7cm in diameter. Sections reveal unremarkable cut surfaces. Merchandise Director sections are submitted in two cassettes with each cassette. 1- right fallopian tube, 2- left fallopian tube./ SJ:mr 05/07/2024 TC:4 CPT: 90389 x2
[2024-05-06] MEDS: Lactated Ringers 1,000 ML 999 ML IV (10:10)
[2024-05-06] MEDS: Acetaminophen 500 MG Tablet 1000 MG PO ×3 (10:22→23:27)
[2024-05-06 10:33] LABS: Absolute Neutrophil Count 4.8 X10^3/uL (2.0-7.7); Basophil# 0.02 X10^3/uL; Basophil% 0.3 % (0-1); Eosinophil# 0.05 X10^3/uL; Eosinophils% 0.7 % (0-5); Hematocrit 29.6 % (37-47); Hemoglobin 10.3 g/dL (12.0-15.0); Mean Corp Hgb Conc 34.8 g/dL (32-36); Mean Corpuscular Hgb 31.4 pg (27.0-32.0); Mean Corpuscular Volume 90.2 fL (81-99); Mean Platelet Vol. 12.8 fl (6.2-12.0); Monocyte# 0.65 X10^3/uL; Monocyte% 9.3 % (0-10); NRBC Flagged by Analyzer 0 % (0-5); Neutrophil # 4.75 X10^3/uL (2.7-7.7); Platelet Count 115 K/mm3 (150-450); RBC Distribution Width CV 13.2 % (11.6-14.6); RBC Distribution Width SD 43.6 fl (35.1-43.9); Red Blood Count 3.28 M/mm3 (4.2-5.4)
[2024-05-06] MEDS: Cefazolin 2 GM in 0.9% Normal Saline (100mL Bag) 100 ML IV (10:33)
[2024-05-06 11:04] LABS: Syphilis Antibodies Non-reactive
[2024-05-06] MEDS: Lactated Ringers 1,000 ML 150 ML IV (11:10)
[2024-05-06] MEDS: Sodium Citrate/Citric Acid 30 ML UDC PO (11:24)
--- NOTE | 2024-05-06 11:31 | PCM.HP.OB ---
HPI - General General Date of Admission: 05/06/24 Date of Service: 05/06/24 Chief Complaint: repeat section HPI Narrative GENO TURNER, is a 33 F who presents for scheduled repeat section. Offers no complaints. [facility] Medical History (Updated 05/06/24 @ 11:[address] Krysten Mcdaniel, DO) Polyhydramnios (vaginal after ) Home Medications ?Medication ?Instructions ?Recorded ?Last Taken ?Type vits,calcium no.78-iron 1 tab PO DAILY 11/13/14 05/05/24 History fumarate-folic acid 29 mg-1 mg tablet ferrous sulfate 325 mg (65 mg 325 mg PO DAILY anemia 07/17/20 05/05/24 History iron) tablet Allergy/AdvReac Type Severity Reaction Status Date / Time No Known Allergies Allergy Verified 05/06/24 10:25 Surgical History (Updated 07/17/22 @ 00:01 by Carolyn Contreras) History of surgery Previous section History of section Social History (Updated 05/07/20 @ 08:18 by Mati ONEAL, PA) Smoking Status: Former smoker alcohol intake: never History Elective abortions Hx Para 4 Spontaneous abortions Hx # Term Pregnancies Ectopic pregnancies Hx # Pregnancies Multiple births # of living children Addt'l History: EFW 3360 g 97% with AC > 99% on 04/11/24 History 1 prior section Vital Signs Vital Signs Vital Signs: 05/06/24 11:14 Temperature 97.0 F L Temperature Source Temporal Pulse Rate 66 Respiratory Rate 16 Blood Pressure 117/66 Blood Pressure Mean 83 Blood Pressure Source Monitor Blood Pressure Position Sitting Blood Pressure Location Right Arm Pulse Ox 98 Oxygen Delivery Method Room Air Weight Weight: 187 lb Body Mass Index (BMI) 32.1 Physical Exam Const alert and no apparent distress General Appearance: comfortable HEENT normocephalic Resp normal respiratory effort GI soft to palpation, non-tender and non-distended Labs Labs Labs: Blood Type A POSITIVE Antibody Screen NEGATIVE Hct 29.6 % (37-47) L Hgb 10.3 g/dL (12.0-15.0) L Obstetrics Ultrasound Syphilis Total Ab Non-reactive Rhogam given: No Assessment & Plan (1) 39 weeks gestation of : PLAN: This risk, benefits, alternatives of a repeat section versus TOLAC were discussed with the patient. Patient requests a repeat serial section with sterilization after discussion given EFW and desire for sterilization. She understands limitations with growth ultrasounds. Questions answered. She understands sterilization is permanent and irreversible with a risk of regret. (2) History of section: (3) Request for sterilization: (4) Polyhydramnios affecting : (5) LGA (large for gestational age) fetus:
--- NOTE | 2024-05-06 13:18 | PCM.OPRPT ---
Problems Associated Problem List Diagnoses (1) LGA (large for gestational age) fetus: (2) Polyhydramnios affecting : (3) Request for sterilization: (4) 39 weeks gestation of : (5) History of section: Report of Operation Date of Procedure: 05/06/24 Pre-Operative Diagnosis: Repeat section, request for sterilization, LGA fetus, polyhydramnios Post-Operative Diagnosis: As above Surgery/Procedure Performed:: RLTCS via pfannenstiel incision Bilateral salpingectomy Description of Surgical Findings:: Minimal bladder adhesions to anterior surface of uterus. Clear fluid. VMI in cephalic presentation with apgars 8, 9. Normal appearing uterus and bilateral adnexa. Surgeon: Krysten Mcdaniel early head start teacher: Deloris MEJÍA Type of Anesthesia: Spinal Special Medications: None Specimen's removed: Placenta Bilateral fallopian tubes Drains: Sebastian Estimated Blood Loss (mL): 800 Fluids Replaced: 1000 mL Description of Procedure: The patient was taken to the OR where spinal anesthesia was induced and found to be adequate. She was prepped and draped in the dorsal supine position with leftward tilt. A Pfannenstiel skin incision was made with the scalpel and carried down to underlying layer of fascia. The fascia was incised in midline and extended laterally using Treadwell scissors. The fascia was dissected off the rectus muscles cephalad and caudad using sharp dissection. The rectus muscles were in the midline bluntly. The peritoneum was entered bluntly with good visualization of the bladder. The peritoneal incision was extended bluntly with lateral traction. A bladder blade was inserted. A low transverse incision was made on the uterus with scalpel. The uterine incision was extended bluntly with cephalad and caudad traction. Membranes were ruptured for clear fluid using an Allis clamp. A vigorous viable male was delivered in cephalic presentation without any traction, force, or delay and the head was flexed during delivery. The cord was clamped and cut after slight delay. The placenta was removed with manual extraction. The uterus was cleared of all clot debris. The uterus was exteriorized. The hysterotomy was closed with 1-0 Vicryl in a running locked fashion. Hemostasis was noted. Confirmed that the patient desired sterilization. The right fallopian tube was followed out to the fimbriated end. The LigaSure device was used to serially clamp, cauterize, and transect along the mesosalpinx hugging adjacent to the fallopian tube until reaching level of the cornua. Once at the level of the cornua the tube was transected. The left fallopian tube was followed out to the fimbriated end. The LigaSure device was used to serially clamp, cauterize, and transect the mesosalpinx hugging adjacent to the fallopian tube until reaching level of the cornua. Once at the level of the cornua the fallopian tube was transected and removed. Bilateral fallopian tubes were sent to pathology for review. Hemostasis was confirmed. The uterus was placed back into the abdomen. Hemostasis was again noted of the adnexa and hysterotomy. The peritoneum was closed with 3-0 Vicryl in a running locked fashion. The sub fascial space was noted to be hemostatic. The fascia was closed with STRATAFIX in a running fashion. The subcutaneous space was irrigated and noted to be hemostatic. Subcutaneous space was reapproximated with 3-0 Vicryl in a running fashion. 4 Monocryl was used in a subcuticular fashion to close the skin by the ALFONZO while I was present on labor and delivery. A dressing was placed. Instrument, sponge, sharp counts were correct and patient was taken to recovery in stable condition. ALFONZO Puentes assisted with draping patient, delivery of infant and closure. Grafts/Implants Used: None Procedure Start Time: 12:33 Complications None Admit VTE Documentation VTE Present on Admission: No VTE Mechan Device Prophylaxis: SCD's
[2024-05-06] MEDS: Oxytocin 15 Units/NS 250ml 15 UNITS/250 ML IV.SOLN 83 UNITS IV (13:35)
[2024-05-06] MEDS: Ketorolac 30 MG/ML Syringe IV ×2 (14:15→19:46)
[2024-05-06 14:19] LABS: Pathology Specimen OB SEE PATHOLOGY REPORT
[2024-05-06] MEDS: Lactated Ringers 1,000 ML 100 ML IV (16:58)
[2024-05-07] MEDS: Enoxaparin 40 MG/0.4 ML Syringe SC (01:44)
[2024-05-07] MEDS: Ketorolac 30 MG/ML Syringe IV ×2 (01:44→07:58)
[2024-05-07 01:45] VITALS: PULSE 61; RESP 16; O2SAT 100
[2024-05-07] MEDS: 0.9% Saline Lock 10 ML Syringe IV (01:48)
[2024-05-07 04:45] VITALS: BP 117/49; PULSE 74; RESP 18; TEMP 36.4; O2SAT 99
[2024-05-07] MEDS: Acetaminophen 500 MG Tablet 1000 MG PO ×2 (04:48→10:59)
--- NOTE | 2024-05-07 07:20 | NURSING ---
report given to Mathew Varma RN who is assuming care of pt at this time, all late entry charting due to [facility] downtime
[2024-05-07 07:26] VITALS: BP 114/46; PULSE 78; RESP 16; TEMP 36.3; O2SAT 97
[2024-05-07] MEDS: Senna/Docusate Sodium 1 Tablet PO (10:59)
[2024-05-07 12:30] VITALS: BP 129/56; PULSE 90; RESP 16; TEMP 36.8; O2SAT 98
[2024-05-07] MEDS: oxyCODONE 5 MG Tablet PO (13:46)
[2024-05-07] MEDS: Ibuprofen 600 MG Tablet PO (15:10)
--- NOTE | 2024-05-07 15:15 | PCM.DC.SUM ---
Providers Date of Admission: 05/06/24 Reason For Visit: REPEAT Diagnosis Discharge Diagnosis (1) 39 weeks gestation of : Status: Resolved Code(s): Z3A.39 - 39 weeks gestation of (2) Delivery by section: Status: Acute Medications at Discharge Home Medications vits,calcium no.78-iron fumarate-folic acid 29 mg-1 mg tablet 1 tab PO DAILY 11/13/14 ferrous sulfate 325 mg (65 mg iron) tablet 325 mg PO DAILY anemia 07/17/20 Hospital Course Summary of Care Provided Minutes Spent on Discharge: 15 Hospital Course: Repeat section and tubal ligation on 05/06/24 without complication. Discharged home on postoperative day #1. Weight / BMI Weight Weight: 187 lb Body Mass Index (BMI) 32.1 ABG / Lab / Microbiology Data 05/06/24 10:10 D/C Instructions Discharge Diet: No restrictions Discharge Activity: Return to Normal Activity, May Not Drive (while taking pain medication and for 2 weeks postoperative) and May Shower May resume sexual activity in: 6 weeks Weight Bearing Status: Full weight bearing Lifting Restricted to (Lbs): 20 Call your doctor if your incision/area has: Continuous Slow Oozing, Sudden Increased Bleeding, Increased Pain/ Swelling, Increased Redness, Foul Smelling Discharge and Swelling at the incision site Call your doctor if you observe: Fever of 101 or Higher, Inability to urinate, Using more than 1 pad per hour, Shortness of breath, Increased palpitations (irregular heartbeat), Calf discomfort and Uncontrolled pain Suture Line Care: Avoid Pulling/Pushing and Avoid Pinching/Bending Remove Dressing in: 4 days Cleanse incision/area with: Soap & Water and Keep Dressing Clean & Dry When: 1 week for incision check and 6 week PP Meaningful Use Info Meaningful Use Meaningful Use Diagnoses (Choose all that apply): None applicable Ischemic Stroke Statin Dosing Therapy Reference: STATIN DOSE THERAPY REFERENCE: * Patients > 75 years receive moderate or high dose statin therapy. * Patients 75 years or YOUNGER should receive HIGH intensity statin dose unless contraindicated. You will be required to document reason for non-treatment if statin daily dose does not meet guidelines. HIGH DOSE STATIN THERAPY DAILY Atorvastatin > than or = to 40 mg Rosuvastatin > than or = to 20 mg Amlodipine + Atorvastatin > than or = to 2.5/40 mg Ezetimibe + Simvastatin 10/80 mg Simvastatin 80mg Discharge Plan Admission Admit Date/Time: 05/06/24 09:38 Primary Reason for Your Visit: Section with Tubal Ligation Attending Provider: Krysten Mcdaniel Discharge Orders/Prescriptions Prescriptions: No Action vit,[id number] 1 TABLET tablet 1 tab PO DAILY ferrous sulfate 325 MG tablet 325 mg PO DAILY Disposition Disposition (needs filled in before D/C Order can be placed): Home, Self Care
[2024-05-07 16:31] VITALS: BP 112/63; PULSE 77; RESP 20; TEMP 36.6; O2SAT 98
--- NOTE | 2024-05-07 17:08 | NURSING ---
1707-to make apt for 1 week and 6 wk post
--- NOTE | 2024-05-07 17:46 | PCM.PN.OB ---
Subjective Subjective Doing well per patient and nursing staff. Ambulating and taking PO without difficulty. Voiding and passing flatus. Pain controlled. , services for assistance. Denies headache, visual changes, chest pain, shortness of breath, leg pain or increased bleeding. Lochia normal. Objective Data Objective Data Vital Signs: Vital Signs Temp Pulse Resp BP Pulse Ox O2 Del Method 97.8 F 77 20 H 112/63 98 Room Air 05/07/24 16:31 05/07/24 16:31 05/07/24 16:31 05/07/24 16:31 05/07/24 16:31 05/07/24 16:31 Oxygen Delivery Method Room Air Weight: 187 lb Body Mass Index (BMI) 32.1 Intake & Output: Intake and Output for Last 24 Hours 05/05/24 05/06/24 05/07/24 23:59 23:59 23:59 Intake Total 3013.33 / 3013.33 Output Total 1650 / 1650 900 / 900 Balance 1363.33 / 1363.33 -900 / -900 Lab / Micro Data 05/06/24 10:10 ROS Constitutional Constitutional: Reports systems reviewed and no addt'l complaints, except as documented; Denies headache(s) Eyes Eyes: Denies acute decrease in peripheral vision, blurry vision or change in vision ENT HEENT: Reports systems reviewed and no addt'l complaints, except as documented Cardiovascular Cardiovascular: Denies chest pain or dizziness Respiratory/Chest Respiratory/Chest: Denies cough, dyspnea, dyspnea on exertion, shortness of breath at rest or shortness of breath with exertion Gastrointestinal Gastrointestinal: Denies abdominal pain, diarrhea, nausea or vomiting Genitourinary Genitourinary: Denies abdominal discomfort Musculoskeletal Musculoskeletal: Denies limited range of motion Integumentary Integumentary: Reports systems reviewed and no addt'l complaints, except as documented Neurologic Neurologic: Reports systems reviewed and no addt'l complaints, except as documented Psychiatric Psychiatric: Reports systems reviewed and no addt'l complaints, except as documented Endocrine Endocrinology: Reports systems reviewed and no addt'l complaints, except as documented Hematologic/Lymphatic Hematologic/Lymphatic: Reports systems reviewed and no addt'l complaints, except as documented Allergic/Immunologic Allergic/Immunologic: Reports systems reviewed and no addt'l complaints, except as documented Physical Exam Const alert and oriented x3 General Appearance: cooperative Orientation / Consciousness: awake, oriented to person, oriented to place and oriented to time Exam Limitations: no limitations HEENT normocephalic Head and Scalp: normal to inspection, normocephalic and atraumatic Face and Sinus: normal facial exam Eyes General Eye: normal appearance of both eyes Neck full ROM Chest Chest: symmetrical chest wall rise Resp normal respiratory effort and normal air movement Auscultation: clear to auscultation bilaterally Cardio regular rate, regular rhythm, S1 normal heart sound, S2 normal heart sound, no murmurs, no rub, no gallops and no clicks GI normal to inspection, nondistended, normoactive bowel sounds and non-tender GI Narrative: Dressing dry and intact appearance of the vagina normal Bladder / Kidney Exam: no CVA tenderness Back/Spine normal ROM Extremity normal to inspection and full ROM Skin no rashes or lesions noted Neuro oriented x3, CN's II-XII intact bilaterally and moves all extremities Sensorium / Orientation: awake, alert and oriented to person Motor Exam: clonus absent Deep Tendon Reflexes: Rt Patellar (L4): 2+ and Lt Patellar (L4): 2+ Assessment & Plan (1) Delivery by section: PLAN: Plan 1) Vitals stable 2) Pain management 3) D/C home 4) Follow up in 1 weeks for incision check and 6 week PP
--- NOTE | 2024-05-13 14:23 | NURSING ---
F/up phone call performed: Pt. reports overall she is doing well. Denies incision issues, no heavy lochia. Feeling well overall, but has an appt with her OBGYN because she has not had a bowel movement yet. Pt. denies questions or concerns.
== END 2024-05-07 17:08 | disposition home or self-care (01) | DRG 541 ==
PROVIDERS: Admitting Provider Obstetrics & Gynecology; Visit Provider Obstetrics & Gynecology
PROC: 10D17Z9 Manual Extraction of Products of Conception, Retained, Via Natural or Artificial Opening (ICD-10-PCS; CPT 59514; principal; 2024-05-06 11:45)
DX: O34.211 Maternal care for low transverse scar from previous cesarean delivery (principal); Z37.0 Single live birth; O36.63X0 Maternal care for excessive fetal growth, third trimester, not applicable or unspecified; Z30.2 Encounter for sterilization; Z87.891 Personal history of nicotine dependence; Z3A.39 39 weeks gestation of pregnancy
CPT/HCPCS: 59025; 85025; 86780; 86850; 86900; 86901; 88302; 99221; A4216; G0378; J2405